=== PATIENT | female | born 1985 | race Caucasian/White ===

== ENCOUNTER 2022-01-27 10:59 | Emergency (ER) | payer OTHER ==
[~2022-01-27] VITALS: Ht 175.3 cm; Wt 72.6 kg
== END 2022-01-27 13:43 | disposition home or self-care (01) ==
LOC: ED 10:59
DX: S93.401A Sprain of unspecified ligament of right ankle, initial encounter (principal); X50.1XXA Overexertion from prolonged static or awkward postures, initial encounter; Y93.39 Activity, other involving climbing, rappelling and jumping off
CPT/HCPCS: 73610; 73630; 99283-25